=== PATIENT | female | born 1970 | race Two or more races ===

== ENCOUNTER 2020-02-22 19:32 | Emergency (ER) | payer OTHER ==
[~2020-02-22] VITALS: Ht 170.2 cm; Wt 69.4 kg
[2020-02-22] MEDS ORDERED: DILTIAZEM ER120 M2 (20:26)
[2020-02-22] MEDS ORDERED: ATIVAN1 M1 (20:26)
[2020-02-22] MEDS ORDERED: HYZAAR 100-12.1 EACH (20:26)
== END 2020-02-23 02:37 | disposition home or self-care (01) ==
LOC: ER 19:32
DX: R10.31 Right lower quadrant pain (principal); K59.09 Other constipation; Z20.828 Contact with and (suspected) exposure to other viral communicable diseases

== ENCOUNTER 2023-03-06 12:17 | Outpatient (CLI) | payer OTHER ==
[~2023-03-06 12:17] MED LIST: ATIVAN1 M1; DILTIAZEM ER120 M2; HYZAAR 100-12.1 EACH
== END 2023-03-06 12:23 | disposition home or self-care (01) ==
LOC: RAD 12:17
DX: S60.222A Contusion of left hand, initial encounter (principal); S60.922A Unspecified superficial injury of left hand, initial encounter

== ENCOUNTER 2024-11-05 13:29 | Emergency (ER) | payer OTHER ==
[~2024-11-05] VITALS: Ht 170.2 cm; Wt 66.7 kg
[2024-11-05] MEDS ORDERED: KETOROLAC TROMETHAMINE 30 MG VIAL ONE (16:44)
[2024-11-05] MEDS ORDERED: KETOROLAC TROMETHAMINE 30 MG VIAL IM ONE (16:45)
== END 2024-11-05 16:53 | disposition home or self-care (01) ==
LOC: ER 13:29
DX: M79.661 Pain in right lower leg (principal); I10 Essential (primary) hypertension